=== PATIENT | female | born 1975 | race Caucasian/White ===

== ENCOUNTER 2016-08-31 11:46 | Emergency (ER) | payer MEDICAID ==
[~2016-08-31] VITALS: Ht 157.5 cm; Wt 74.8 kg
--- NOTE | 2016-08-31 11:52 | NUR ---
PRESENTS SELF TO ED DUE TO COUGH AND CONGESTION X 5DAYS. PATIENT IS AAO4, APPEARS IN NO APPARENT DISTRESS, STILL NOTED WITH COUGH AND CONGESTION, SKIN IS WARM TO TOUCH AND NON DIAPHORETIC. PT IS AFEBRILE. VSS.
--- NOTE | 2016-08-31 12:12 | NUR ---
TAYE AT BS
[2016-08-31] MEDS ORDERED: ALBUTEROL FS 2.5 MG/3 ML VIAL.NEB ONE (12:27)
[2016-08-31] MEDS ORDERED: ALBUTEROL FS 2.5 MG/3 ML VIAL.NEB NEB ONE (12:30)
[2016-08-31 13:24] VITALS: BP 112/60
--- NOTE | 2016-08-31 13:28 | NUR ---
Patient discharged to home in stable condition. Written and verbal after care instructions given. Patient verbalizes understanding of instruction.
== END 2016-08-31 13:28 | disposition home or self-care (01) ==
LOC: ER 11:48
DX: J20.9 Acute bronchitis, unspecified (principal); Z88.6 Allergy status to analgesic agent
CPT/HCPCS: 71010; 94640; 99283; A4606; Z7610

== ENCOUNTER 2016-09-07 21:22 | Emergency (ER) | payer MEDICAID ==
[~2016-09-07] VITALS: Ht 160 cm; Wt 69.9 kg
--- NOTE | 2016-09-07 21:42 | NUR ---
PT BIB SELF C/O NONRPODUCTIVE COUGH X2 WEEKS. RESPIRATIONS APPEAR EVEN AND UNLABORED HOWEVER MILD WHEEZES ARE AUDIBLE UPON EXAM. DENIES RESPIRATORY HX. NO OTHER COMPLAINTS. NAD NOTED. IN ER BED 11.
[2016-09-07] MEDS ORDERED: ALBUTEROL FS 2.5 MG/3 ML VIAL.NEB ONE (22:16)
[2016-09-07] MEDS ORDERED: IPRATROPIUM NEB FS 0.5 MG/2.5 ML AMPUL.NEB ONE (22:16)
[2016-09-07] MEDS ORDERED: predniSONE 20 MG TABLET ONE (22:28)
[2016-09-07] MEDS ORDERED: IPRATROPIUM NEB FS 0.5 MG/2.5 ML AMPUL.NEB NEB ONE (22:30)
[2016-09-07] MEDS ORDERED: ALBUTEROL FS 2.5 MG/3 ML VIAL.NEB NEB ONE (22:30)
[2016-09-07] MEDS ORDERED: predniSONE 20 MG TABLET PO ONE (22:30)
[2016-09-07] MEDS ORDERED: AZITHROMYCIN 250 MG TABLET ONE (23:27)
[2016-09-07] MEDS ORDERED: AZITHROMYCIN 250 MG TABLET PO ONE (23:30)
[2016-09-07 23:37] VITALS: BP 140/68
--- NOTE | 2016-09-07 23:37 | NUR ---
Patient discharged to home in stable condition. Written and verbal after care instructions given. Patient verbalizes understanding of instruction. NAD NOTED.
== END 2016-09-07 23:38 | disposition home or self-care (01) ==
LOC: ER 21:22
DX: J40 Bronchitis, not specified as acute or chronic (principal); Z88.5 Allergy status to narcotic agent
CPT/HCPCS: 71010; 94640; 99283; A4606; J7512; Z7610

== ENCOUNTER 2018-05-23 10:14 | Emergency (ER) | payer MEDICAID ==
[~2018-05-23] VITALS: Ht 157.5 cm; Wt 70.8 kg
[2018-05-23 10:19] VITALS: BP 133/80
--- NOTE | 2018-05-23 10:23 | NUR ---
DR CADENA AT BEDSIDE
--- NOTE | 2018-05-23 10:55 | NUR ---
PT LEFT WITHOUT RECEIVING DISCHARGE PAPERS.
--- NOTE | 2018-05-23 10:58 | NUR ---
PT CALLED AND WILL COME BACK FOR D/C PAPERS
== END 2018-05-23 11:02 | disposition home or self-care (01) ==
LOC: ER 10:15
DX: M54.5 Low back pain (principal); Z88.5 Allergy status to narcotic agent

== ENCOUNTER 2019-01-10 09:54 | Emergency (ER) | payer MEDICAID ==
[~2019-01-10] VITALS: Ht 160 cm; Wt 74.8 kg
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
[2019-01-10] MEDS ORDERED: ACETAMINOPHEN ES 500 MG TABLET ONE (10:45)
[2019-01-10] MEDS ORDERED: ACETAMINOPHEN ES 500 MG TABLET PO ONE (11:00)
--- NOTE | 2019-01-10 11:46 | NUR ---
Patient discharged to home in stable condition. Written and verbal after care instructions given. Patient verbalizes understanding of instruction.
[2019-01-10 11:52] VITALS: BP 125/83
== END 2019-01-10 11:53 | disposition home or self-care (01) ==
LOC: ER 09:55
DX: S40.022A Contusion of left upper arm, initial encounter (principal); Z88.5 Allergy status to narcotic agent; V49.49XA Driver injured in collision with other motor vehicles in traffic accident, initial encounter; Y93.89 Activity, other specified; Y92.89 Other specified places as the place of occurrence of the external cause; Y99.8 Other external cause status
CPT/HCPCS: 73030-TC